=== PATIENT | male | born 2000 | race African-American/Black ===

== ENCOUNTER 2021-02-23 11:20 | Inpatient (IN) | payer BC, OTHER, SELFPAY ==
[2021-02-23] MEDS ORDERED: Ketorolac Tromethamine 30 MG/ML VIAL ONE (12:09)
[2021-02-23 12:42] LABS: ALT (SGPT) 20 U/L (8-55); AST (SGOT) 47 U/L (5-34); Albumin 4.1 g/dL (3.5-5.0); Alkaline Phosphatase 62 U/L (40-110); Anion Gap 14 mmol/L (10-20); BUN (Urea Nitrogen) 7 mg/dL (8.9-20.6); CK (CPK) 625 U/L (30-200); Calc. Creatinine Clearance 0 mL/min (70-130); Calcium 8.7 mg/dL (7.8-10.44); Carbon Dioxide 25 mmol/L (22-29); Chloride 102 mmol/L (98-107); Globulin 2.6 g/dL (2.4-3.5); Glucose 97 mg/dL (70-105); Potassium 3.7 mmol/L (3.5-5.1); Protein, Total 6.7 g/dL (6.0-8.3); Sodium 137 mmol/L (136-145)
[2021-02-23 13:04] LABS: Eosinophils 4 % (0-10); Hemoglobin 14.1 g/dL (14.0-18.0); Lymphocytes 24 % (21-51); MDiff Complete? YES; Mean Corpuscular HGB CONC 33.1 g/dL (32.0-36.0); Mean Corpuscular Volume 93.8 fL (78.0-98.0); Mean Platelet Volume 8.3 fL (7.4-10.4); Monocytes 18 % (0-10); Neutrophil 54 % (42-75); Platelet Count 188 thou/uL (130-400); Platelet Morphology Comment Appears Adequate; RBC Distribution Width 11.5 % (11.5-14.5); RBC Morphology Normal; Red Blood Cell (RBC) Count 4.54 mill/uL (4.70-6.10); White Blood Cell (WBC) Count 4.5 thou/uL (4.8-10.8)
[2021-02-23 13:17] LABS: CKMB 22.4 ng/mL (0-6.6)
[2021-02-23] MEDS ORDERED: HYDROcodone/Acetaminophen 5/325 mg Tablet PO PRN (14:30)
[2021-02-23] MEDS ORDERED: Acetaminophen 325 MG TAB PO PRN (14:30)
[2021-02-23] MEDS ORDERED: Colchicine 0.6 MG TAB PO SCH (14:30)
[2021-02-23] MEDS ORDERED: Ondansetron PF 4 MG/2 ML Vial IVP PRN (14:30)
[2021-02-23] MEDS ORDERED: Ondansetron ODT 4 MG TAB PO PRN (14:30)
[2021-02-23 15:27] LABS: SARS-CoV-2 NAA Rapid Test Not Detected (NotDetected)
[2021-02-23 15:37] LABS: Hemoglobin 13.8 g/dL (14.0-18.0); Mean Corpuscular HGB CONC 32.8 g/dL (32.0-36.0); Mean Corpuscular Hemoglobin 30.8 pg (27.0-31.0); Mean Platelet Volume 8.3 fL (7.4-10.4); Platelet Count 195 thou/uL (130-400); RBC Distribution Width 11.6 % (11.5-14.5); Red Blood Cell (RBC) Count 4.49 mill/uL (4.70-6.10); White Blood Cell (WBC) Count 5.2 thou/uL (4.8-10.8)
[2021-02-23 16:00] LABS: Troponin I 7.381 ng/mL (< 0.028)
[2021-02-23 16:08] LABS: Band 7 % (5-11); Lymphocytes 35 % (21-51); MDiff Complete? YES; Monocytes 15 % (0-10); Neutrophil 38 % (42-75); RBC Morphology Normal; Reactive Lymphocytes 5 % (0-10)
[2021-02-23] MEDS ORDERED: Sodium Chloride 0.9% 10 ML ONE (16:08)
[2021-02-23 16:17] VITALS: BMI 21.9
[2021-02-23] MEDS: Sodium Chloride 0.9% 1,000 ML IV SCH (16:35)
[2021-02-23 18:59] LABS: Troponin I 7.507 ng/mL (< 0.028)
[2021-02-23 18:59] LABS: Amphetamine Detected (NotDetected); Barbiturates Screen Not Detected (NotDetected); Benzodiazepine Screen Not Detected (NotDetected); Cocaine Metabolite Screen Not Detected (NotDetected); Medtox Control Line Valid? VALID (VALID); Medtox Reader # READER 4; Methadone Not Detected (NotDetected); Methamphetamine Detected (NotDetected); Opiate Screen Not Detected (NotDetected); Oxycodone Screen Not Detected (NotDetected); Phencyclidine (PCP) Not Detected (NotDetected); THC/Cannabinoid Screen Detected (NotDetected); Tricyclic Screen Not Detected (NotDetected)
[2021-02-23] MEDS: Colchicine 0.6 MG TAB PO SCH (21:11)
[2021-02-24] MEDS ORDERED: Nitroglycerin 0.4 MG TAB (25 Tab Bottle) ONE (00:50)
[2021-02-24] MEDS ORDERED: Nitroglycerin 0.4 MG TAB (25 Tab Bottle) SL PRN (01:04)
[2021-02-24] MEDS ORDERED: Morphine 4 MG/ML VIAL SLOW IVP SCH (01:15)
[2021-02-24] MEDS ORDERED: Morphine 4 MG/ML VIAL SLOW IVP PRN (02:12)
[2021-02-24 02:43] LABS: CKMB 29.5 ng/mL (0-6.6)
[2021-02-24 04:32] LABS: Band 4 % (5-11); Eosinophils 1 % (0-10); Hemoglobin 12.3 g/dL (14.0-18.0); Hypochromia SLIGHT = 6-15 cells (100X) (0-5/hpf); Lymphocytes 32 % (21-51); MDiff Complete? YES; Mean Corpuscular HGB CONC 33.3 g/dL (32.0-36.0); Mean Corpuscular Hemoglobin 31.4 pg (27.0-31.0); Mean Corpuscular Volume 94.5 fL (78.0-98.0); Mean Platelet Volume 8.4 fL (7.4-10.4); Monocytes 17 % (0-10); Neutrophil 38 % (42-75); Platelet Count 185 thou/uL (130-400); Platelet Morphology Comment Appears Adequate; RBC Distribution Width 11.4 % (11.5-14.5); Reactive Lymphocytes 8 % (0-10); Red Blood Cell (RBC) Count 3.91 mill/uL (4.70-6.10); White Blood Cell (WBC) Count 4.7 thou/uL (4.8-10.8)
[2021-02-24] MEDS: Sodium Chloride 0.9% 1,000 ML IV SCH (06:45)
[2021-02-24] MEDS ORDERED: Prevnar 13-Val Conj/PF 0.5 ML SYRINGE IM ONE (09:00)
[2021-02-24] MEDS ORDERED: Non-Formulary Item 1 EACH (Dolutegravir Sodium/Lamivudine [Dovato 50-300 Mg Tablet] 1 EAC PO SCH (09:00)
[2021-02-24] MEDS ORDERED: Indomethacin 75 mg SR Capsule PO SCH (09:00)
[2021-02-24] MEDS: Colchicine 0.6 MG TAB PO SCH (09:19)
[2021-02-24 15:19] VITALS: BP 110/71; TEMP 97.7
[2021-02-25] MEDS ORDERED: ASCORB SOD PO SCH (09:00)
[2021-02-25] MEDS ORDERED: MULTIVIT MIN PO SCH (09:00)
[2021-02-25] MEDS ORDERED: Dolutegravir Sodium/Lamivudine [Dovato 50-300 Mg Tablet] PO SCH (09:00)
[2021-02-25] MEDS ORDERED: VIT C PO SCH (09:00)
== END 2021-02-24 18:00 | disposition home or self-care (01) | DRG 315 ==
LOC: ERS 11:20 → 2NO 14:33
PROVIDERS: ADMIT Internal Medicine; ATTEND Internal Medicine
DX: I31.9 Disease of pericardium, unspecified (principal); B20 Human immunodeficiency virus [HIV] disease; Z20.822 Contact with and (suspected) exposure to COVID-19; Z23 Encounter for immunization; J45.909 Unspecified asthma, uncomplicated; Z79.899 Other long term (current) drug therapy
CPT/HCPCS: 0240U; 36415; 71045; 80053; 80306; 82550; 82553; 84484; 85025; 93005; 93010; 93306; 96374; J1885; J2270; J2405